=== PATIENT | female | born 1970 | race Caucasian/White ===

== ENCOUNTER → 2016-09-03 | Outpatient (CLI) | payer OTHER ==
[~2016-09-03] MED LIST: CYCL-265 PO; NAPR550T PO; PHEN-452 PO
--- NOTE | 2016-09-04 17:02 | Diagnostic Imaging Report ---
EXAM: DIG KRISTIE BILAT SCREEN W CAD The current study was also evaluated with a Computer Aided Detection (CAD) system. INDICATION: Screening. COMPARISON: Mammogram 04/24/2015. DENSITY: Scattered areas of fibroglandular density. FINDINGS: No significant change. No mass, calcification or architectural distortion suspicious for malignancy in either breast. IMPRESSION: No mammographic findings suspicious for malignancy. RECOMMENDATION: Routine screening mammography in one year. ACR BI-RADS Category 1: Negative. Result letter will be mailed to the patient. Note: At least 10% of breast cancer is not imaged by mammography. Dictated by: Dictated on workstation # [id number]
== END ==
LOC: RAD 07:30
PROVIDERS: ATTEND Family Medicine
DX: Z12.31 Encounter for screening mammogram for malignant neoplasm of breast (principal)